=== PATIENT | female | born 1990 | race Caucasian/White ===

== ENCOUNTER 2019-06-25 18:12 | Inpatient (IN) | payer BC ==
[~2019-06-25] VITALS: Ht 165.1 cm; Wt 75.0 kg
[2019-06-25] VITALS (13 sets, daily range): BP systolic 102–144; BP diastolic 54–75; PULSE 50–101; TEMP 97.9–98.8
--- NOTE | 2019-06-25 18:10 | NUR ---
Pt to LDR 4 with spouse. Clean gown on. EFM and TOCO explained and applied. Pt has been claudia all day but states contractions are 5 minutes apart now. Denies leaking of fluids. Reports bloody show all day and good movement. SVE 7-8/100/0 per Rafia CASTRO. Pt states she is not wanting an epidural. Breathing techniques explained to pt. 1824: updated on pts status. See physican notifications. Pt and updated on plan of care. Consents and assessment completed. 1834: IV started and LR bolus infusing without difficulties. IV ancef pushed over 5 minutes per orders. 1853: at bedside and plan of care explained to pt and who verbalize understanding. SVE 9/100/0 per provider. Pt states she does not want her water broke at this time. Pt continues to labor. 1919: Pt called out stating she is feeling more pressure. SVE 9-10 per . Plan of care explained to pt and and questions answered. Pt agrees to AROM at this time 1926: AROM completed by . Small amount of clear fluid noted. SVE complete per provider. 1929: Instructions on pushing with contractions explained to pt by . Pt begins pushing with provider. remains at bedside reviewing FHR strip. 1939: to nurses station and to remain on unit reviewing FHR strip. Pt to continue pushing with RN. 1949: requested at bedside for delivery. Bed broken down and pt assisted into footplates and begins pushing with contractions with provider. 1954: Audible FHR deceleration noted down to 75bpm lasting 230seconds with intermittent spontaneous returns to baseline with deceleration. Pt instructed to push per provider. LR bolus infusing. 1958: Spontaneous vaginal delviery of viable male infant by . Infant to mothers chest where dried and stimulated by nursery RN. Delayed cord clamping for 3 minutes per parents request. Lidocaine administered vaginally by for laceration repair. Cord clamped X2 after 3 minutes and cut by FOB. Care of assumed by Aldo CASTRO. 2002: Spontaneous vaginal delivery of intact placenta by . Pitocin started at 333mus/hr per protocol. First degree and periurethral laceration repaired by . Fundal message completed, fundus firm, midline and bleeding minimal. Pericare provided and plan of care explained to pt and who verbalize understanding. Questions answered. Pads changed, ice pack applied and pt repositioned in bed. See physican dications. Call light within reach.
[2019-06-25] MEDS ORDERED: PRENATAL MVI PO (18:40)
[2019-06-25] MEDS ORDERED: CALCIUM CARBON650 M2 PO (18:41)
[2019-06-25 18:42] LABS: BASO % 0.2 % (0.0-2.0); EOS # 0.1 (0.0-0.7); EOS % 0.9 % (0-4.0); GRAN # 12.6 (1.4-6.5); GRAN % 81.9 % (42.2-75.2); HEMATOCRIT 36.4 % (37.0-47.0); HEMOGLOBIN 12.7 g/dl (12.5-16.0); LYMPH # 1.9 (1.2-3.4); LYMPH % 12.5 % (20.0-51.0); MEAN CELL VOLUME 94 fl (80.0-100.0); MEAN CORPUSCULAR HEMOGLOBIN 33 pg (27.0-31.0); MEAN CORPUSCULAR HGB CONC 35 g/dl (33.0-37.0); MEAN PLATELET VOLUME 12.2 fl (7.4-10.4); MONO # 0.6 (0.1-0.6); PLATELET COUNT 184 K/mm3 (130-400); RED BLOOD COUNT 3.89 M/mm3 (4.10-5.30); REDCELL DISTRIBUTION WIDTH-CV 12.3 % (11.5-14.5)
[2019-06-26 00:10] VITALS: BP 101/49; PULSE 51; TEMP 98.7
[2019-06-26 04:05] VITALS: BP 110/54; PULSE 53; TEMP 98.6
[2019-06-26 07:15] VITALS: BP 122/76; PULSE 89; TEMP 98.2
--- NOTE | 2019-06-26 07:15 | NUR ---
Ambulates in room. Assessment done, denies any needs at this time. Helps change babys diaper.
--- NOTE | 2019-06-26 10:56 | NUR ---
Initial visit; Patient thanked Braille Operator for offering congratulations and God's blessings for the of her son. Braille Operator thanked parents for choosing [facility].
--- NOTE | 2019-06-26 11:00 | NUR ---
Rests in bed, alert. baby with the help of economic consultant.
--- NOTE | 2019-06-26 11:53 | NUR ---
Rests in bed, alert. Ibuprofen 800 mg given per request and as ordered.
[2019-06-26 17:30] VITALS: BP 112/65; PULSE 63; TEMP 97.8
[2019-06-26 20:45] VITALS: BP 109/52; PULSE 63; TEMP 98.2
[2019-06-27] MEDS ORDERED: MOTRIN 800800 MG/TAB PO (08:16)
[2019-06-27 08:30] VITALS: BP 117/64; PULSE 70; TEMP 98
--- NOTE | 2019-06-27 10:14 | NUR ---
PARENTS WATCHED SAFE SLEEP, PERIOD OF PURPLE CRYING, DEPRESSION AND VIDEOS
[2019-06-27 12:33] VITALS: BP 122/71; PULSE 98; TEMP 98
== END 2019-06-27 12:55 | disposition home or self-care (01) | DRG 807 ==
LOC: LDRO 18:12 → LDR 18:14 → OB 23:13
PROVIDERS: Obstetrics & Gynecology; ADMIT Student in an Organized Health Care Education/Training Program
PROC: 10E0XZZ Delivery of Products of Conception, External Approach (ICD-10-PCS; principal; 2019-06-25)
PROC: 10907ZC Drainage of Amniotic Fluid, Therapeutic from Products of Conception, Via Natural or Artificial Opening (ICD-10-PCS; 2019-06-25)
PROC: 0HQ9XZZ Repair Perineum Skin, External Approach (ICD-10-PCS; 2019-06-25)
DX: O99.824 Streptococcus B carrier state complicating childbirth (principal); Z37.0 Single live birth; O99.62 Diseases of the digestive system complicating childbirth; O70.0 First degree perineal laceration during delivery; Z3A.40 40 weeks gestation of pregnancy; K21.9 Gastro-esophageal reflux disease without esophagitis; K58.9 Irritable bowel syndrome, unspecified
CPT/HCPCS: J0690; J2590; J7120

== ENCOUNTER → 2019-07-14 | Outpatient (CLI) | payer BC ==
[~2019-07-14] MED LIST: CALCIUM CARBON650 M2 PO; MOTRIN 800800 MG/TAB PO; PRENATAL MVI PO
--- NOTE | 2019-07-14 11:55 | NUR ---
Jamila Granda into the outpatient clinic with 19 day old Larry for evaluation and weight check. Jamila states that Larry is nursing 8-9 times per day and reports diapers to be WNL. Jamila expresses concern that Larry is spitting up after feeds, with an increase in spitting up in the afternoons. Jamila also states that Larry continues to root and given hunger cues after feeding and spitting up. Larry's weigh ton 06/25/19 was noted as 6# 9 oz. Today's prefeed weight was noted as 7#7.4 oz (3386 grams). Postfeed weight after nursing bilaterally was noted as 7 # 10.8 oz (3482 grams), a gain of 96 grams. POC: Continue to feed ad sugey. Keep infant upright after feeds and consider removing from second breast a few minutes early to avoid spitting up.
== END ==
LOC: LAC 10:02
DX: Z39.1 Encounter for care and examination of lactating mother (principal); Z71.89 Other specified counseling

== ENCOUNTER → 2019-07-28 | Outpatient (CLI) | payer BC ==
--- NOTE | 2019-07-28 12:12 | NUR ---
Pt, Jamila Adalberto Granda, presents to walk-in clinic with 1 month old baby boy, Larry Granda, for a evaluation because she is introducing bottles She would like to know how much he drinks at the breast so she can provide appropriate amount in bottles. She also has had a couple plugged ducts in the left breast recently. Larry was born on [birth year] and weighed 6#9oz. At clinic on 07/14/19 he weighed 7#7.4oz. Today Larry weighs 8#5.8oz. After independantly Larry has a post feed weight gain of 108gms (3.9oz). Questions about bottle feeding volumes, management of plugged milk ducts, and pumping to save milk for return to work reviewed. POC: Continue ad sugey, introducing bottles, saving milk, and management of plugged milk ducts as discussed. F/U: As scheduled for well baby visits, and clinic as desired.
== END ==
LOC: OLC 10:34
DX: Z39.1 Encounter for care and examination of lactating mother (principal); Z71.89 Other specified counseling

== ENCOUNTER → 2019-08-18 | Outpatient (CLI) | payer BC ==
--- NOTE | 2019-08-18 13:40 | NUR ---
Pt, Jamila Adalberto Granda, presents to walk-in clinic with 7 week old baby boy, Larry Granda, for a evaluation because Larry has decreased his weight gain and dropped in pertile on growth charts at the doctor's office. Larry was born on [birth year] and weighed 6#9oz. He was last seen in clinic on 07/28/19 and weighed 8#5.8oz, for a 27% gain in one month. His intake a clinic was 3.9oz. Larry was seen on 08/13/19 at the doctor's office and his weight was reported to be 8#13oz. Today Larry weighs 9#1.3oz. He continues to nurse 8 times daily, with one sleep cycle of 5 hour at [facility]. Pt states since the appt on 08/13 she has stopped monitoring his length of feedings, and feeds on demand. She also reports he has increased his spitting up, after most feedings and is being monitored by the physician for GERD. He is not on medication at this time. Pt also notes she is not able to pump as she id at 4 weeks of age. She had gone from collecting 3oz to 1.5 to 2oz. She has a history of plugged milk ducts and recurrance again yesterday. She is taking Lecithin 1200mg but not TID as instructed. After Larry had a post feed gain of 2.6oz. He was acting hungry so she placed him to the breast again and demonstrated additional gain of 4gms. Pt expresses concern of feeding him more and more often and the issue of spitting up getting worse. At this time, LC advises to feed frequently, based on his cues and monitor spit up. Also advised to not pump unless she feels he does not empty well in an effort to have milk available for freqent feedings. POC: Continue BF ad sugey, monitor spit up. Pump prn but not on a schedule. F/U: Clinic next week and physician as advised to discuss spit up. Questions invited and answered.
== END ==
LOC: OLC 10:22
DX: Z71.89 Other specified counseling (principal)

== ENCOUNTER → 2019-08-25 | Outpatient (CLI) | payer BC ==
--- NOTE | 2019-08-25 12:40 | NUR ---
Pt, Jamila Granda, present to walk-in clinic with 2 month old baby boy, Larry Granda. They have been following at clinic regularly because Larry had not gain weight as expected at his [address] with [address]. Cook. Larry was born on [birth year] and weighed 6#9oz. Last week he weighed 9#1.3oz and had an intake from the breast of 2.6oz. Today Larry weighs 9#8.8oz. Pt states she has allowed Larry to nurse as long as desired and has had a few feedings each day that last an hour. Larry continues to spit up, a larger spit up occured here after feeding and it was enough to cover about 1/3 of the burp cloth and run down the front of pt's shirt. After (and spit up) Larry had a weight gain of 2.4oz. Because of good weight gain over this last week, pt encouraged to continue feedings as she has done, continue monitoring spit up and discuss at the doctor appt scheduled for tomorrow. Also encouraged to increase pumping again in an effort to prepare for returning to work in 4 weeks. Pt states the blocked milk duct in the right breast has fully resolved. POC: Continue as over the last week. F/U: as scheduled with doctor and anticipate at clinic next week. Questions invited and answered.
== END ==
LOC: LAC 10:49
DX: Z39.1 Encounter for care and examination of lactating mother (principal); Z71.89 Other specified counseling

== ENCOUNTER → 2019-09-01 | Outpatient (CLI) | payer BC ==
--- NOTE | 2019-09-01 11:31 | NUR ---
Pt, Jamila Adalberto Granda, presents to walk-in clinic for a evaluation with 2 month old baby boy, Larry Granda. They are attending clinic regularly as Larry has slowed his weight gain on his growth curve and Larry has been spitting up large amounts after feedings. He is being followed by Dr. Cook for this as well. Larry was born on [birth year] and weighed 6#9oz. Last week his weight was 9#8.8oz and had an intake of 2.4oz. Today Larry weighs 9#13.4oz for a gain of 4.6oz in the last week. He continues to have 8 feedings per day, qs voids and stools. Pt states he has not slept as well at [facility] recently, decreasing from a 6 hour stretch to 3-4 hour stretches. She still puts him down for naps every couple hours; he only sleeps for about 45 minutes. LC suggests keeping him up a little longer and doing 3 longer naps in the daytime. After today Larry had an initial gain of 3.1oz. He was still rooting so went back to the breast for another 0.6oz for a total of 3.7oz. He did spit up some after each session, but while here, he did not spit as much as compared to last week. POC: Continue ad sugey. Work on milk supply with pumping as she is able, and supplements as desired. F/U: anticipate next week at clinic. Questions invited and answered.
== END ==
LOC: OLC 11:02
DX: Z39.1 Encounter for care and examination of lactating mother (principal); Z71.89 Other specified counseling

== ENCOUNTER → 2019-09-08 | Outpatient (CLI) | payer BC ==
--- NOTE | 2019-09-08 11:28 | NUR ---
Pt, Jamila Adalberto Granda, presents to walk-in clinic with 10 week old baby boy, Larry Granda, for a evaluation. They have attended clinic weekly as Larry has had GERD, causing lots of spitting. Larry was born on [birth year] and weighed 6#9oz. Last week his weight was 9#13.4oz. His intake after feeding was 3.7oz. Today his weight is 10#4.1oz, for a gain of 6.7oz over the last week. Pt states Larry continues to have spit up, not as bad if they do side-lying and he rests in that position for a while. They have not started medication for GERD. Pt states she has used honeycutt's yeast and mother's milk tea to help build her supply again. She continues to pump after the first morning feed to store milk for return to work. After nursing Larry has a gain of 3.64oz (102 gms). POC: continue ad sugey, consider re-introduction of the bottle before returning to work. F/U: Anticipated at clinic in one week, Larry will be seen tomorrow by Dr. Cook. Questions invited and answered.
== END ==
LOC: LAC 10:57
DX: Z39.1 Encounter for care and examination of lactating mother (principal); Z71.89 Other specified counseling

== ENCOUNTER → 2019-09-15 | Outpatient (CLI) | payer BC ==
--- NOTE | 2019-09-15 13:32 | NUR ---
Pt, Jamila Whitt, into clinic with 12 week old Larry for weight check and to assess milk transfer. Jamila and Larry have regularly been coming into clinic for weight checks and concerns regarding Larry spitting up. Please see previous notes for reference. Larry was born [birth year] with a weight of 6# 9 oz. Last week his prefeed weight was noted as 10# 4.1 oz and he took 3.64 oz from the breast. Today Larry's prefeed weight was noted as 10 # 11.4 oz (4860 gm), a gain of 7 oz over the last week. Jamila notes Larry is nursing 7-8 times per day, she is pumping 2 times per day, and reports diapers to be WNL. Jamila states she has stopped taking brewers yeast and lacation tea as she feels Larry was fussier when she took them. Jamila states Larry is still consistantly spitting up and is fussier after feedings. She is still considering starting him on Pepcid, but at this point has not started the medication. While in clinic, Larry nursed bilaterally with a total gain of 4.3 oz. LC noted he spit up at least two times after feeding. POC: Continue to feed ad sugey. Consider starting Pepcid if she feels he is in pain and the medication can be beneficial. Continue to follow up as desired. Questions invited and answered. Understanding verbalized.
== END ==
LOC: LAC 12:04
DX: Z39.1 Encounter for care and examination of lactating mother (principal); Z71.89 Other specified counseling

== ENCOUNTER → 2019-10-06 | Outpatient (CLI) | payer BC ==
--- NOTE | 2019-10-06 11:50 | NUR ---
Evie Whitt, into walk in clinic with 3 month old Larry for weight check and to evaluate milk/supply and transfer. Evie also expresses concern regarding plugged milk ducts. Historically, Larry has spit up large amounts after each feeding. Evie has not started giving Larry the prescribed Pepcid to see if this would help with the spitting up. Evie and Larry have been in the clinic various times, please see previous notes. Evie reports diapers to be WNL and states Larry has been nursing 7-9 times per day. He is taking 4 oz bottles while she is at work a couple days a week. She is also pumping q morning and 3 x per day during the two days a week she is working. Evie states she is pumping up to 3 oz per pumping session. Larry's prefeed weight today was noted as 11#11.9 oz (5326 gm), a gain of 16 ounzes since they were last in clinic 21 days ago, an average gain of 0.7 oz/day. While in clinic on 09/15/19, Larry took a total of 4.3 oz from the breast. While in clinic Larry nursed bilaterally with a gain of 2.9 oz (82 gm). Discussed including more pumping sessions to help increase supply and/or starting herbal supplement to help increase supply. Evie asked about starting supplementation and starts she would like to start supplementing feeds with EBM or formula to help increase weight gain. Evie states she continues to get plugged ducts on a regular basis. She continues to take Lesithin to help with this. She is using massage during breast feeding. encouraged her to follow up with physician to help assess why she is continuing to get plugged ducts. POC: Continue to feed ad sugey, supplement 1-2 oz EBM or forumla after . Continue to use breast pump, increasing shield size near end of pumping session to see if this helps decrease plugged ducts. Consider supplemets and/or increase pumping if desired to help increase milk supply. Follow up with physician if she continues to have issues with plugged ducts. Return to clinic as desired for weight check or with other breast feeding issues. Questions invited and answered. Understanding verbalized.
== END ==
LOC: OLC 10:44
DX: Z39.1 Encounter for care and examination of lactating mother (principal); Z71.89 Other specified counseling

== ENCOUNTER → 2019-10-13 | Outpatient (CLI) | payer BC ==
--- NOTE | 2019-10-13 12:13 | NUR ---
Pt, Jamila Granda, prsents to walk-in clinic with 3.5 month old baby boy, Larry Granda with on-going concerns of plugging milk ducts, low milk supply and Larry having emesis. This family comes to clinic regularly, please see previous notes for history. Larry was born on [birth year] and weighed 6#9oz (2977 gms). Last week he weighed 11#11.9oz (5326gms) for a gain of 0.9oz in the last week. After Larry has a weight gain of 66gms. He has a few mouthfulls of spit up. Pt states she continues to breastfeed on demand, which has been very frequent recently and that Larry is not sleeping more than a couple hour at a time. Larry receives supplement of 2-4 oz after depending how satisfied he is, often having spit-up after. There is no difference in spit-up between formula or breastmilk, breast or bottle feeding. Larry has been on pepcid for 5 days now; pt does not notice a difference in spit-up yet. Pt also reports feeling that she has recurring plugged milk ducts that she has been reporting for a few weeks now. This seems to be worse when she tries to increase milk supply with herbal supplements or additional pumping. this is resulting in a low milk supply. Pt has found Larry is sensetive to honeycutt's yeast and fenugreek so is waiting on another form of supplement to arrive to help with milk supply. she is also awaiting the arrival of a different breast shield to see if she gets better results with milk transfer from the breast and reduce the plugged ducts. Pt also states she has significantly reduced the dairy in her diet in an effort to improve Larry's stomach trouble. POC: Continue /supplementing/pumping but try increasing supplement after breastfeedings as the amount transferred today is low. LC will reach out to Dr. Barnett to discuss the ongoing plugged ducts despite low milk supply, and consider subclinical mastitis or other possibilities. LC suggested changing formula supplement to nutramagin for a short trial of tolerance. F/U: LC with contact pt after consult with Dr. Barnett.
== END ==
LOC: OLC 10:23
DX: Z39.1 Encounter for care and examination of lactating mother (principal); Z71.89 Other specified counseling

== ENCOUNTER → 2019-10-20 | Outpatient (CLI) | payer BC ==
--- NOTE | 2019-10-20 12:07 | NUR ---
Pt, Jamila Adalberto Granda, presents to walk-in clinic with 3.5 month old baby boy, Larry Granda. They are regulars at the clinic and are being seen for low milk volume and weight gain. Larry was born on [birth year] and weighed 6#9oz (2977 gms). Last week Larry weighed 11#12.8oz (5352 gms), gaining only 0.9oz from the previous week. His intake from the breast last week was 66ml. Today Larry weighs 12#4.4oz (5570 gms), for a gain of 7.6oz in the last week. Pt reports over the last week Larry has been supplemented 2oz at bedtime daily; one day he recieved 1oz p 5 feedings, and other days random 1oz supplements based on how he behaved. Pt also reports Cj had a couple days that spit up was larger but other days what she would say is normal baby spit up. Pt started clindamycin for sub-clinical mastitis and states she is not feeling the plugged ducts she has been struggling with and even feels milk supply increasing on the right side. She also started a fenugreek-free herbal supplement in the last few days. Larry is now on a medication for GERD. Pt has received a new type of breast shield for her pump but has not used them yet. She reports pumping 2.4 and 2.9oz at a recent work day. After Larry had a gain of 70 gms from the right breast and 15 from the left for a total of 85 gms (3 oz). Pt asks if she should be supplementing after breastfeedings, suggested an ounce if he is receptive is fine, and try to pump after 3 feedings daily to help with milk supply. POC: Continue , consider supplementing 1oz after , continue 2oz supplement at bedtime. Try pumping TID, finish clindamycin, continue Larry on GERD medication. F/U: Anticipate at clinic next week. Questions invited and answered.
== END ==
LOC: OLC 10:48
DX: Z39.1 Encounter for care and examination of lactating mother (principal); Z71.89 Other specified counseling

== ENCOUNTER → 2019-10-27 | Outpatient (CLI) | payer BC ==
--- NOTE | 2019-10-27 14:38 | NUR ---
Pt, Jamila Adalberto Granda, presents to walk-in clinic with 4 month old baby boy, Larry Granda, for a evaluation. They present regularly for evaluation of milk transfer because Larry has had some periods where he hasn't gained weight as desired, and she has had h/o low milk supply and plugged ducts. Larry was born on [birth year] and weighed 6#9oz (2977 gms). Last week he weighed 12#4oz (5570 gms). Today he weighed 12#10.3oz (5805 gms), for a gain of 5.9oz in the last week. Pt reports Larry is eating 7-9 times daily, with frequent feeds at [facility], q 2-3 hours. He receives 2oz supplement at his hs feeding, and a couple ounces throughout the daytime. Pt has been on clindamycin for sub-clinical mastitis, she initially reported it seemed to be helping but she does not feel complete relief yet. Currently she has a "plugged duct" on the left side, LC palpates and feels it is more likely an area of milk that has not drained, but not necessarily a plugged duct. Pt does state after the feeding here it did relieve. After Larry had a weight gain of 3.7oz (106 gms). He had small amounts of spit up. She reports the spit up is still intermittent, some days better than others. POC: continue and supplementing as she has done. May consider adding a supplement in the noc as his feedings are more frequent in the noc over the last several days. F/U: clinic as desired. Pt states she got an infant scale but may still check in to verify weights and ask questions.
== END ==
LOC: LAC 12:10
DX: Z39.1 Encounter for care and examination of lactating mother (principal); Z71.89 Other specified counseling

== ENCOUNTER → 2019-11-23 | Outpatient (CLI) | payer BC | LOC: MC.RAD 09:42 | DX: N63.10 Unspecified lump in the right breast, unspecified quadrant (principal); N63.20 Unspecified lump in the left breast, unspecified quadrant; N64.89 Other specified disorders of breast ==

== ENCOUNTER → 2020-07-01 | Outpatient (CLI) | payer BC | LOC: ZCOL.LAB 19:28 | DX: Z20.828 Contact with and (suspected) exposure to other viral communicable diseases (principal); J02.9 Acute pharyngitis, unspecified ==

== ENCOUNTER 2021-02-28 22:06 | Inpatient (IN) | payer BC ==
[~2021-02-28] VITALS: Ht 165.1 cm; Wt 61.8 kg
[~2021-02-28 22:06] MED LIST changes: -IBU800 M1 PO; -PRENATAL TABLET PO; -TUMS500 MG
--- NOTE | 2021-02-28 22:20 | NUR ---
G2L1. 40-3. Pt ambulatory to LDR 3 with spouse. Pt using the restroom, stating she has diarrhea that she has had all day. 2234: Pt assisted to bed, wedge left position. EFM and TOCO explained and applied. Pt reports contractions every couple of mins and states she is having "bloody, mucous discharge" but does not report her water breaking. Reports good movement. SVE 5-6/90/-1. at nurses station and reviews FHR strip and report given on pts status. Admit orders received. Pt not wanting an epidural at this time. 2250: IV started and labs obtained via IV site. 225: Ancef pushed over 5 mins per orders. LR bolus to follow. Plan of care and safety precautions explained to pt and who verbalize their understanding. Call light within reach.
[2021-02-28] MEDS ORDERED: TUMS500 MG (22:24)
[2021-02-28] MEDS ORDERED: PRENATAL TABLET PO (22:24)
[2021-02-28 23:22] LABS: BASO % 0.3 % (0.0-2.0); EOS # 0.3 (0.0-0.7); EOS % 2.8 % (0-4.0); GRAN # 7.9 (1.4-6.5); GRAN % 71.4 % (42.2-75.2); HEMATOCRIT 34.7 % (37.0-47.0); HEMOGLOBIN 11.9 g/dl (12.5-16.0); LYMPH # 2.1 (1.2-3.4); MEAN CELL VOLUME 95 fl (80.0-100.0); MEAN CORPUSCULAR HEMOGLOBIN 33 pg (27.0-31.0); MEAN CORPUSCULAR HGB CONC 34 g/dl (33.0-37.0); MEAN PLATELET VOLUME 12.2 fl (7.4-10.4); MONO # 0.7 (0.1-0.6); PLATELET COUNT 158 K/mm3 (130-400); RED BLOOD COUNT 3.66 M/mm3 (4.10-5.30); REDCELL DISTRIBUTION WIDTH-CV 12.1 % (11.5-14.5)
[2021-02-28 23:34] VITALS: BP 133/62; PULSE 86; TEMP 98.3
--- NOTE | 2021-02-28 23:34 | NUR ---
FHR strip reactive, catagory 1. Pt off monitors to take hot shower, okay to shower per orders. Pt denies feeling any pressure at this time. IV covered and pt assisted into bathroom.
[2021-03-01] VITALS (14 sets, daily range): BP systolic 102–135; BP diastolic 51–71; PULSE 49–84; TEMP 97.7–98.9
--- NOTE | 2021-03-01 00:23 | NUR ---
EFM and TOCO reapplied. Pt denies feeling pressure at this time and states she does not want to be checked. Pt left lateral. Plan of care explained to pt. 0040: Recurrent late decels noted with last three contractions. Pt repositioned to right lateral. Pt states she feels like her water just broke but she might of peed also. Small amount of clear fluid noted to pad. Pad placed to observe. Plan of care explained. 0050: Pt's to nurses desk stating pt feels like she needs to poop. SVE C/+2. Pt coached to continue to breath through contractions. 0052: requested for delivery. See physican notification. Emotional support/teaching to breath through contractions given to pt. Pt feeling urge to push. 0102: at the bedside for delivery. Pt repositioned into footplates. Pt educated to push with contractons with provider. 0105: Spontaneous delivery of viable female infant by . Infant to mothers chest where dried and stimulated by nursery RN. Cord clamped X2 after 3 mins per pts request and cut by FOB. Care of infant assummed by Leonides CASTRO. 0110: Spontaneous delivery of intanct placenta by . Pitocin started at 333mus/hr per protocol. Pernieum intact. Fundal message completed with moderate amount of bleeding and clots expressed. Fundus midline. Pericare completed. Ice applied to perineum. Pads changed and pt repositioned in bed. Pt and educated on plan of care and safety precautions. Call light within reach.
--- NOTE | 2021-03-01 09:00 | NUR ---
Initial visit; Parents thanked Print Room Worker for offering congratulations and God's blessings for the of their daughter. Print Room Worker thanked family for choosing [facility].
[2021-03-01] MEDS ORDERED: IBU800 M1 PO (12:21)
[2021-03-02 07:25] VITALS: BP 109/68; PULSE 57; TEMP 97.7
[2021-03-02 16:33] VITALS: BP 106/78; PULSE 65; TEMP 97.4
--- NOTE | 2021-03-02 18:50 | NUR ---
Report recieved. Sitting in bed eating. Updated whiteboard and reviewed POC.
[2021-03-02 20:15] VITALS: BP 107/68; PULSE 60; TEMP 97.5
[2021-03-03 07:20] VITALS: BP 119/76; PULSE 56; TEMP 98
== END 2021-03-03 11:35 | disposition home or self-care (01) | DRG 807 ==
LOC: LDRO 22:06 → LDR 22:18 → OB 03-01 04:12
PROVIDERS: ADMIT Student in an Organized Health Care Education/Training Program
PROC: 10E0XZZ Delivery of Products of Conception, External Approach (ICD-10-PCS; principal; 2021-03-01)
DX: O48.0 Post-term pregnancy (principal); Z37.0 Single live birth; O99.824 Streptococcus B carrier state complicating childbirth; O43.123 Velamentous insertion of umbilical cord, third trimester; O99.62 Diseases of the digestive system complicating childbirth; O71.89 Other specified obstetric trauma; O69.1XX0 Labor and delivery complicated by cord around neck, with compression, not applicable or unspecified; Z3A.40 40 weeks gestation of pregnancy; Z20.822 Contact with and (suspected) exposure to COVID-19
CPT/HCPCS: J0690; J2590; J7120

== ENCOUNTER → 2021-02-28 | Outpatient (CLI) | payer BC ==
[~2021-02-28] MED LIST changes: +IBU800 M1 PO; +PRENATAL TABLET PO; +TUMS500 MG
== END ==
LOC: ZCOL.LAB 09:05
DX: Z20.822 Contact with and (suspected) exposure to COVID-19 (principal)